=== PATIENT | female | born 1990 | race Caucasian/White ===

== ENCOUNTER 2017-04-08 22:30 | Emergency (ER) | payer OTHER ==
[2017-04-09] MEDS ORDERED: Ibuprofen TAB* 600 MG PO ONE (00:01)
--- NOTE | 2017-04-09 00:05 | ED ---
Lower Extremity - HPI Summary HPI Summary: 26 female presents with complaints of lower left ankle pain that occurred just [place] when she was climbing a rock wall and missed a step landing on her left ankle wrong. States she twisted it wrong. Admits to swelling and bruising. No other injuries or complaints. Did not hit head, no LOC. States she fell about 4.5 feet off of wall. No PMHx. Has not been able to bear weight due to the pain. Unable to move ankle, no ROM. Denies tingling admits to it feeling kind of numb. Has been icing. No knee or hip pain. - History of Current Complaint Chief Complaint: EDExtremityLower Stated Complaint: LT ANKLE INJURY Time Seen by Provider: 04/08/17 23:05 Hx Obtained From: Patient Mechanism Of Injury: Fall From Height Of: - 4.5, Twisted Onset of Pain: Immediate, Post Accident Onset/Duration: Hours Severity Initially: Mild Severity Currently: Mild Pain Intensity: 3 Pain Scale Used: 0-10 Numeric Timing: Constant Location: Is Discrete @ - left ankle both lateral and medial Character Of Pain: Sharp - with movemen, Aching Associated Signs And Symptoms: Positive: Swelling, Bruising Aggravating Factor(s): Standing, Ambulation, Movement, Weight Bearing Alleviating Factor(s): Rest, Ice Able to Bear Weight: No - due to pain - Allergies/Home Medications Allergies/Adverse Reactions: Allergies Allergy/AdvReac Type Severity Reaction Status Date / Time Penicillins Allergy Swelling Verified 04/08/17 22:39 PMH/Surg Hx/FS Hx/Imm Hx Endocrine/Hematology History: Denies: Hx Diabetes Cardiovascular History: Denies: Hx Hypertension Respiratory History: Denies: Hx Asthma - Surgical History Surgery Procedure, Year, and Place: none - Immunization History Immunizations Up to Date: Yes Infectious Disease History: No Infectious Disease History: Denies: Traveled Outside the [place] in Last 30 Days - Family History Known Family History: Positive: None - Social History Alcohol Use: None Substance Use Type: Reports: None Smoking Status (MU): Never Smoked Tobacco Review of Systems Constitutional: Negative Cardiovascular: Negative Respiratory: Negative Gastrointestinal: Negative Positive: Arthralgia, Myalgia, Decreased ROM, Edema - left ankle Positive: Bruising - left ankle Neurological: Negative Psychological: Normal All Other Systems Reviewed And Are Negative: Yes Physical Exam Triage Information Reviewed: Yes Vital Signs On Initial Exam: Initial Vitals Temp Pulse Resp BP Pulse Ox 98.0 F 77 16 102/63 97 04/08/17 22:41 04/08/17 22:41 04/08/17 22:41 04/08/17 22:41 04/08/17 22:41 Vital Signs Reviewed: Yes Appearance: Positive: Well-Appearing, No Pain Distress, Well-Nourished Skin: Positive: Warm, Skin Color Reflects Adequate Perfusion, Dry, Other - swelling and ecchymosis noted at left ankle, lateral malleolus and medial inner foot no obvious significant deformity. Negative: Cold, Numb, Pale, Erythema @ Head/Face: Positive: Normal Head/Face Inspection Eyes: Positive: Conjunctiva Clear ENT: Positive: Hearing grossly normal Neck: Positive: Supple, Nontender Respiratory/Lung Sounds: Positive: Clear to Auscultation, Breath Sounds Present. Negative: Rales, Rhonchi, Wheezes Cardiovascular: Positive: Normal, RRR, Pulses are Symmetrical in both Upper and Lower Extremities - 2+ pedal b/l. Negative: Murmur, Rub Musculoskeletal: Positive: Limited @ - left ankle due to pain, little to no ROM , even with passive, Pain @ - left lateral malleolous at ATFL, hihg ankle sprain and medial inner foot/ankle tibionavicular ligament., Edema Left - lateral malleolous and medial inner foot, Other - no crepitus, step off. ecchymosis and edema. rest of MSK exam normal and lower tibia/fibula knee normal. Negative: Interruption @ Neurological: Positive: Normal, Sensory/Motor Intact - sensation intact, able to move toes, Alert, Oriented to Person Place, Time, Reflexes Intact, Unable to Assess Gait - due to pain and injury Psychiatric: Positive: Affect/Mood Appropriate Diagnostics - Vital Signs Vital Signs Temp Pulse Resp BP Pulse Ox 04/08/17 22:41 98.0 F 77 16 102/63 97 - Laboratory Lab Statement: Any lab studies that have been ordered have been reviewed, and results considered in the medical decision making process. - Radiology left ankle Xray Interpretation: No Acute Changes - soft tissue swelling, no obvious signs of fracture. repeat imaging if symptoms persist or worsen Radiology Interpretation Completed By: ED Physician - Dr Gotti Lower Extremity Course/Dx - Course Course Of Treatment: xray obtained and negative for fracture at this time. appears to have suffered a sprain. RICE and NSAIDs. given crutches, brace, ice and ibuprofen. non weight bearing. follow up emily and ortho. aware of worsening signs and symptoms to watch out for. - Diagnoses Differential Diagnosis/HQI/PQRI: Positive: Contusion, Dislocation, Fracture ( Closed), Sprain, Strain Provider Diagnoses: Left ankle sprain Discharge - Discharge Plan Condition: Stable Disposition: HOME Patient Education Materials: Ankle Sprain (ED) Referrals: EMILY Laureano [Primary Care Provider] - Salud Pabon MD [Medical Doctor] - Additional Instructions: Use crutches and brace for support. Non weight bearing. Apply ice and elevate ankle to help with swelling. Take ibuprofen to help with pain and inflammation. Take with food. Follow up ortho if symptoms worsen or do not improve. Follow up primary care provider.
[2017-04-09 00:28] VITALS: BP 106/61
--- NOTE | 2017-04-09 07:52 | RAD ---
INDICATION: Left ankle injury. TECHNIQUE: 3 views of the left ankle were obtained. FINDINGS: Soft tissue swelling is noted along the anterolateral aspect of the ankle. There appears to be a small linear avulsion fracture fragment arising from the medial talus. Joint spaces appear maintained. IMPRESSION: SMALL LINEAR AVULSION FRACTURE FRAGMENT ARISING FROM THE MEDIAL TALUS.
== END 2017-04-09 00:36 | disposition home or self-care (01) ==
LOC: ED 22:30
DX: S93.402A Sprain of unspecified ligament of left ankle, initial encounter (principal); M25.572 Pain in left ankle and joints of left foot; X50.9XXA Other and unspecified overexertion or strenuous movements or postures, initial encounter; Y93.31 Activity, mountain climbing, rock climbing and wall climbing; Y92.89 Other specified places as the place of occurrence of the external cause
CPT/HCPCS: 99282; A9270-GY